=== PATIENT | female | born 1950 | race Caucasian/White ===

== ENCOUNTER → 2016-11-27 | Outpatient (CLI) | payer OTHER ==
[2016-11-27 13:35] LABS: BASO % 0.4 %; BASO ABS # 0.02 K/uL (0-0.2); COMPLETE YES; HEMATOCRIT 41.2 % (37-47); LYMPH % 26.5 %; LYMPH ABS # 1.23 K/uL (1.2-3.4); MEAN CELL VOLUME 90.4 fL (80-100); MEAN CORPUSCULAR HGB CONC 33.3 g/dl (32-36); MEAN PLATELET VOLUME 10.6 fL (7.4-10.4); MONO % 7.1 %; PLATELET COUNT 318 K/uL (130-400); RED BLOOD COUNT 4.56 M/uL (4.2-5.4); WHITE BLOOD COUNT 4.64 K/uL (4.8-10.8)
[2016-11-27 14:23] LABS: ALT/SGPT 21 U/L (12-78); AST/SGOT 16 U/L (15-37); BLOOD UREA NITROGEN 25 mg/dl (7-18); BUN/CREATININE RATIO 28.8 (10-20); CALCIUM 9.2 mg/dl (8.5-10.1); CARBON DIOXIDE 28 mmol/L (21-32); CHLORIDE 106 mmol/L (98-107); CHOLESTEROL 190 mg/dl (0-200); CREATININE 0.85 mg/dl (0.60-1.20); GLUCOSE 95 mg/dl (70-99); POTASSIUM 3.9 mmol/L (3.5-5.1); SODIUM 141 mmol/L (136-145); TRIGLYCERIDES 78 mg/dl (0-150); VERY LOW DENSITY LIPOPROT CALC 16 mg/dl
[2016-11-27 14:24] LABS: ALB/GLOB RATIO 1.2 (0.9-2); ALKALINE PHOSPHATASE 57 U/L (45-117); CHOLESTEROL/HDL RATIO 2.5; HDL CHOLESTEROL 77 mg/dl; LDL CHOLESTEROL CALCULATED 97 mg/dl
== END | disposition home or self-care (01) ==
LOC: C.LABBC 09:32
PROVIDERS: ATTEND Family Medicine
DX: I10 Essential (primary) hypertension (principal); E78.5 Hyperlipidemia, unspecified; Z13.0 Encounter for screening for diseases of the blood and blood-forming organs and certain disorders involving the immune mechanism

== ENCOUNTER → 2017-07-13 | Outpatient (CLI) | payer OTHER ==
--- NOTE | 2017-07-14 07:58 | MAMMOGRAPHY REPORT ---
BILATERAL DIGITAL SCREENING MAMMOGRAM TOMOSYNTHESIS WITH CAD: 07/13/2017 CLINICAL HISTORY: Routine screening. Patient has no complaints. TECHNIQUE: Breast tomosynthesis in addition to standard 2D mammography was performed. Current study was also evaluated with a Computer Aided Detection (CAD) system. COMPARISON: Comparison is made to exams dated: 07/02/2016 mammogram, 06/28/2015 mammogram - [facility], 07/13/2014 mammogram, 07/13/2014 mammogram, 07/25/2013 mammogram, and 08/02/2012 tino mogram. BREAST COMPOSITION: The tissue of both breasts is heterogeneously dense, which may obscure small mas ses. FINDINGS: There are diffuse bilateral microcalcifications and innumerable tiny masses scattered bilat erally. These findings appear generally stable comparing to prior mammograms although some of the ma sses have fluctuated in size, suggesting fluctuating cysts. No suspicious spiculated or irregular ma ss, focal area of architectural distortion or cluster of new, suspicious microcalcifications is seen. IMPRESSION: ACR BI-RADS CATEGORY 1: NEGATIVE There is no mammographic evidence of malignancy. A 1 year screening mammogram is recommended. The pa tient will receive written notification of the results. Approximately 10% of breast cancers are not detected with mammography. A negative mammographic report should not delay biopsy if a clinically suggestive mass is present. Sarah Anton M.D. ay/:07/13/2017 22:00:59 [employer] Finisher: Laurie KOCH)([place]), [facility] letter sent: Normal 1/2 BI-RADS Code: ACR BI-RADS Category 1: Negative
== END | disposition home or self-care (01) ==
LOC: C.MAMM 14:13
PROVIDERS: ATTEND Physician Assistant Medical
DX: Z12.31 Encounter for screening mammogram for malignant neoplasm of breast (principal)

== ENCOUNTER → 2017-11-26 | Outpatient (CLI) | payer OTHER ==
[2017-11-26 11:17] LABS: ALBUMIN 4.2 gm/dl (3.4-5.0); ALT/SGPT 28 U/L (12-78); AST/SGOT 20 U/L (15-37); BLOOD UREA NITROGEN 25 mg/dl (7-18); CALCIUM 9.3 mg/dl (8.5-10.1); CARBON DIOXIDE 30 mmol/L (21-32); CHOLESTEROL 159 mg/dl (0-200); CREATININE 0.77 mg/dl (0.60-1.20); GLUCOSE 94 mg/dl (70-99); POTASSIUM 3.9 mmol/L (3.5-5.1); SODIUM 140 mmol/L (136-145)
[2017-11-26 11:20] LABS: ALKALINE PHOSPHATASE 52 U/L (45-117); LDL CHOLESTEROL CALCULATED 73 mg/dl; TOTAL PROTEIN 7.2 gm/dl (6.4-8.2)
== END | disposition home or self-care (01) ==
LOC: C.LABBC 08:50
PROVIDERS: ATTEND Physician Assistant Medical
DX: Z00.00 Encounter for general adult medical examination without abnormal findings (principal); I10 Essential (primary) hypertension; E78.5 Hyperlipidemia, unspecified

== ENCOUNTER → 2017-12-13 | Outpatient (CLI) | payer OTHER | END | disposition home or self-care (01) | LOC: C.LABBC 13:02 | PROVIDERS: ATTEND Physician Assistant Medical | DX: R30.0 Dysuria (principal) ==

== ENCOUNTER → 2017-12-25 | Outpatient (CLI) | payer OTHER | END | disposition home or self-care (01) | LOC: C.LAB1850 09:29 | PROVIDERS: ATTEND Internal Medicine | DX: R30.0 Dysuria (principal) ==

== ENCOUNTER → 2018-01-05 | Outpatient (CLI) | payer OTHER | END | disposition home or self-care (01) | LOC: C.LABBC 08:29 | PROVIDERS: ATTEND Internal Medicine Geriatric Medicine | DX: R30.0 Dysuria (principal) ==

== ENCOUNTER → 2018-01-21 | Outpatient (CLI) | payer OTHER | END | disposition home or self-care (01) | LOC: C.LABBC 12:14 | PROVIDERS: ATTEND Physician Assistant Medical | DX: R39.9 Unspecified symptoms and signs involving the genitourinary system (principal) ==

== ENCOUNTER → 2018-03-03 | Outpatient (CLI) | payer OTHER | END | disposition home or self-care (01) | LOC: C.PATHSPEC 11:13 | PROVIDERS: ATTEND Urology | DX: R31.29 Other microscopic hematuria (principal); R39.9 Unspecified symptoms and signs involving the genitourinary system ==

== ENCOUNTER 2020-12-07 13:26 | Inpatient (IN) ==
--- NOTE | 2020-12-07 14:07 | Emergency Department Note ---
Impression & Plan Pneumonia due to COVID-19 virus, Hypoxia, Fever ED Provider Note NAME: ROXANNE CASTILLO AGE: 70 SEX: F : 1950 ARRIVES VIA: Walk-In INFORMANT: Patient, ED PROVIDER(S): Darío Watts DO CHIEF COMPLAINT: Shortness of breath HPI: The patient is a 70-year-old female who presented to the emergency department for an evaluation of shortness of breath. The patient has been experiencing shortness of breath fever and cough over the last 5 days. She states symptoms are continuous and worsening especially over the last 24 hours. The patient saw her primary care physician and had an outpatient Covid swab ordered. This was returned today is negative and the patient was advised to come to the emergency department because of ongoing and worsening symptoms. She denies having any chest pain but does complain of chest tightness. She also thinks she may have hurt her rib because now she has reproducible left chest wall pain right over her lower rib cage. She does not have any abdominal pain. She denies having any nausea or vomiting at this time but did have some GI symptoms earlier. She denies having any lower extremity swelling or pain but recently had surgery for a newly diagnosed rectal cancer. She does not have a history of DVT or clot to the lungs. The patient does not normally wear oxygen. The patient did receive the first dose of the COVID-19 vaccination. ROS: See above HPI for pertinent positives & negatives. A total of 10 systems reviewed and were otherwise negative. PAST MEDICAL HISTORY: See Below PAST SURGICAL HISTORY: See Below FAMILY HISTORY: See Below SOCIAL HISTORY: See Below HOME MEDICATIONS: See Below ALLERGIES: See Below VITALS: See Below PHYSICAL EXAMINATION: GENERAL: The patient is awake and alert. She is somewhat anxious appearing. EYES: The conjunctivae are clear. The pupils are round and reactive. EARS, NOSE, MOUTH AND THROAT: The nose is without any evidence of any deformity. NECK: The neck is nontender and supple. RESPIRATORY: Shallow respirations were noted. Diminished breath sounds are noted through the lower right lung field. Rales were noted at the left base. The patient did have some conversational dyspnea. There were no retractions noted. CARDIOVASCULAR: Tachycardic but regular rate was noted auscultation. No definite murmur was noted. GASTROINTESTINAL: The abdomen is soft. Abdomen is nontender. MUSCULOSKELETAL/EXTREMITIES: There is no evidence of gross deformity full range of motion is noted in the hips and shoulders. SKIN: There is no obvious evidence of any rash. There are no petechiae, pallor or cyanosis noted. No calf tenderness was elicited. NEUROLOGIC: Patient is awake alert and oriented x3. MEDICAL DECISION MAKING: The patient is a 70-year-old female who presented to the emergency department for an evaluation of difficulty breathing and cough. The patient had a febrile illness and was negative for Covid earlier in the week. She presents emergency department today because of worsening symptoms. She did receive her first COVID-19 vaccination. The patient was found to have hypoxia in the emergency department. She was treated with Tylenol IV fluids and IV Decadron in the emergency department. I discussed the patient's laboratory and radiographic studies with her. Given the degree of symptoms as well as her hypoxia the patient was felt to be candidate for inpatient management. I discussed this with the patient and she was agreeable. The [facility] hospitalist was notified about the patient pending admission. Triage Nursing notes reviewed. Prior medical records reviewed Vital Signs: reviewed and remarkable for hypoxia, fever, intermittent hypotension. Differential diagnosis: Reactive airway disease, pneumonia, pneumothorax, COPD, CHF, infections, cardiac ischemia, pulmonary embolism, musculoskeletal, gastrointestinal, as well as other pathologies. ER treatment provided: See below Diagnostics interpreted by me: ECG: EKG was obtained in the emergency department. My interpretation is normal sinus rhythm at 96 bpm. Low voltage was noted throughout. Poor R wave progression was noted. No previous tracing was available. Cardiac Monitoring: An order was placed for continuous cardiac monitoring. The monitor shows a rate of 89 bpm with sinus rhythm. Laboratory studies: As stated above and show below. Imaging studies: See below Consultation(s): Dr. Campbell was notified about the patient via [place] text. Past Med/Surg History Medical History Anxiety Dyslipidemia Hypertension Surgical History History of detached retina repair left eye History of hysterectomy History of varicose vein ligation and stripping left leg--1997 Family History Father Dyslipidemia Hypertension Lung cancer Mother Hypertension Breast cancer Myocardial infarction, Onset Age: 89 Sister Breast cancer Thyroid disease Denies family history of Ovarian cancer Prostate cancer Colorectal cancer Stroke Social History Smoking Status: Never smoker Hx Alcohol Use: Yes Hx Substance Use: No Preferred Language: Georgian Visual Impairment: No Limitations Hearing Ability: Normal marital status: single Current Living Situation: Significant Other current occupational status: retired current occupation: x-ray tech Feels Safe at Home: Yes Childhood Exposure to Second-Hand Smoke: Yes caffeine: Yes Dental Care, Regularly: Yes Physical Activity Frequency: 5-6 Times per Week Seatbelt Use: always Sunscreen Use: Yes Allergies Allergies Allergy/AdvReac Type Severity Reaction Status Date / Time acetaminophen [From Percocet] AdvReac Mild Verified 12/07/20 15:29 oxycodone [From Percocet] AdvReac Mild Verified 06/26/20 09:20 Home Meds Home Medications Medication Instructions Recorded Confirmed multivitamin 1 tab PO DAILY 12/07/19 12/07/20 rosuvastatin 5 mg tablet 5 mg PO 3XWK tab 12/11/19 12/07/20 lisinopril-hydrochlorothiazide 1 tab PO DAILY 12/07/20 12/07/20 Results & Data (ED) Vital Signs Vital Signs - 24 hr 12/07/20 13:35 12/07/20 14:10 12/07/20 14:12 Temperature 36.7 C 39.1 C H Temperature Source Temporal Artery Scan Oral Pulse Rate 108 H Pulse Rate [Apical] 95 H Pulse Rate from SpO2 Sensor Respiratory Rate 18 20 Respiratory Effort / Characteristics Non-Labored Spontaneous Non-Labored Spontaneous Non-Labored Spontaneous Respiratory Depth Normal Normal Blood Pressure 147/84 H Blood Pressure [Right Arm] 150/81 H Blood Pressure Mean 105 Blood Pressure Mean [Right Arm] 104 Blood Pressure Position Sitting Pulse Oximetry 91 95 93 Oxygen Delivery Method Room Air Room Air Room Air Sepsis Recent Fever Within 48 Hours Yes Sepsis New/Unexplained Change in Mental Status No Sepsis Action Taken by Nursing No Action Required 12/07/20 14:30 12/07/20 15:00 12/07/20 15:30 Temperature Temperature Source Pulse Rate 88 92 H 82 Pulse Rate [Apical] Pulse Rate from SpO2 Sensor 88 92 H 83 Respiratory Rate 15 15 14 Respiratory Effort / Characteristics Respiratory Depth Blood Pressure 125/72 121/72 114/67 Blood Pressure [Right Arm] Blood Pressure Mean 89 88 82 Blood Pressure Mean [Right Arm] Blood Pressure Position Pulse Oximetry 95 92 92 Oxygen Delivery Method Room Air Room Air Room Air Sepsis Recent Fever Within 48 Hours Sepsis New/Unexplained Change in Mental Status Sepsis Action Taken by Nursing 12/07/20 15:48 12/07/20 16:14 Temperature 38.4 C H Temperature Source Oral Pulse Rate Pulse Rate [Apical] Pulse Rate from SpO2 Sensor Respiratory Rate Respiratory Effort / Characteristics Respiratory Depth Blood Pressure Blood Pressure [Right Arm] Blood Pressure Mean Blood Pressure Mean [Right Arm] Blood Pressure Position Pulse Oximetry 88 L Oxygen Delivery Method Room Air Sepsis Recent Fever Within 48 Hours Sepsis New/Unexplained Change in Mental Status Sepsis Action Taken by Residential Medications Current Medication List: was personally reviewed by me Laboratory Data Attestation: I reviewed the patient's lab results. Result diagrams: 12/07/20 14:25 12/07/20 14:25 Lab Results 12/07/20 12/07/20 12/07/20 Range/Units 14:15 14:15 14:15 WBC (4.8-10.8) K/uL RBC (4.2-5.4) M/uL Hgb (12.0-16.0) g/dL Hct (37-47) % MCV (80-100) fL MCH (25-34) pg MCHC (32-36) g/dL RDW Std Deviation (36.4-46.3) fL RDW Coeff of Bree (11.5-14.5) % Plt Count (130-400) K/uL MPV (7.4-10.4) fL Immature Gran % (Auto) % Neut % (Auto) % Lymph % (Auto) % Johnson % (Auto) % Eos % (Auto) % Baso % (Auto) % Neut # (Auto) (1.4-6.5) K/uL Lymph # (Auto) (1.2-3.4) K/uL Johnson # (Auto) (0.11-0.59) K/uL Eos # (Auto) (0-0.5) K/uL Baso # (Auto) (0-0.2) K/uL Immature Gran # (Auto) (0.00-0.02) K/uL PT (9.0-12.0) Seconds INR (0.9-1.1) APTT (21.0-31.0) Seconds PTT Ratio D-Dimer (0-500) ug/L FEU Sodium (136-145) mmol/L Potassium (3.5-5.1) mmol/L Chloride (98-107) mmol/L Carbon Dioxide (21-32) mmol/L Anion Gap (3-11) BUN (7-18) mg/dl Creatinine (0.6-1.2) mg/dl Est Cr Clr Drug Dosing ml/min Est GFR ( Amer) Est GFR (Non-Af Amer) BUN/Creatinine Ratio (10-20) Glucose (70-99) mg/dl Lactate (0.4-2.0) mmol/L Calcium (8.5-10.1) mg/dl Magnesium (1.8-2.4) mg/dl Total Bilirubin (0.2-1) mg/dl AST (15-37) U/L ALT (12-78) U/L Alkaline Phosphatase (45-117) U/L Troponin I (0-0.045) ng/ml Total Protein (6.4-8.2) gm/dl Albumin (3.4-5.0) gm/dl Globulin (2.5-4.0) gm/dl Albumin/Globulin Ratio (0.9-2) Procalcitonin (0-0.5) ng/ml COVID-19 Eval Order CovFluRsv at [facility] SARS-CoV-2 (PCR) Cancelled Influenza Type A (PCR) Cancelled Influenza Type B (PCR) Cancelled RSV (RT-PCR) Cancelled SARS-CoV-2, RNA, NAAT POSITIVE A* (NEGATIVE) 12/07/20 12/07/20 12/07/20 Range/Units 14:25 14:25 14:25 WBC 8.59 (4.8-10.8) K/uL RBC 4.76 (4.2-5.4) M/uL Hgb 14.2 (12.0-16.0) g/dL Hct 42.2 (37-47) % MCV 88.7 (80-100) fL MCH 29.8 (25-34) pg MCHC 33.6 (32-36) g/dL RDW Std Deviation 41.0 (36.4-46.3) fL RDW Coeff of Bree 12.7 (11.5-14.5) % Plt Count 261 (130-400) K/uL MPV 10.0 (7.4-10.4) fL Immature Gran % (Auto) 0.3 % Neut % (Auto) 88.0 % Lymph % (Auto) 7.5 % Johnson % (Auto) 4.0 % Eos % (Auto) 0.1 % Baso % (Auto) 0.1 % Neut # (Auto) 7.56 H (1.4-6.5) K/uL Lymph # (Auto) 0.64 L (1.2-3.4) K/uL Johnson # (Auto) 0.34 (0.11-0.59) K/uL Eos # (Auto) 0.01 (0-0.5) K/uL Baso # (Auto) 0.01 (0-0.2) K/uL Immature Gran # (Auto) 0.03 H (0.00-0.02) K/uL PT 10.1 (9.0-12.0) Seconds INR 1.0 (0.9-1.1) APTT 26.1 (21.0-31.0) Seconds PTT Ratio 1.0 D-Dimer 440 (0-500) ug/L FEU Sodium 139 (136-145) mmol/L Potassium 4.0 (3.5-5.1) mmol/L Chloride 102 (98-107) mmol/L Carbon Dioxide 28 (21-32) mmol/L Anion Gap 9.0 (3-11) BUN 30 H (7-18) mg/dl Creatinine 1.03 (0.6-1.2) mg/dl Est Cr Clr Drug Dosing 48.7 ml/min Est GFR ( Amer) 63.3 Est GFR (Non-Af Amer) 54.6 BUN/Creatinine Ratio 28.7 H (10-20) Glucose 104 H (70-99) mg/dl Lactate (0.4-2.0) mmol/L Calcium 9.5 (8.5-10.1) mg/dl Magnesium 2.5 H (1.8-2.4) mg/dl Total Bilirubin 0.3 (0.2-1) mg/dl AST 43 H (15-37) U/L ALT 42 (12-78) U/L Alkaline Phosphatase 95 (45-117) U/L Troponin I < 0.015 (0-0.045) ng/ml Total Protein 7.2 (6.4-8.2) gm/dl Albumin 3.5 (3.4-5.0) gm/dl Globulin 3.7 (2.5-4.0) gm/dl Albumin/Globulin Ratio 0.9 (0.9-2) Procalcitonin (0-0.5) ng/ml COVID-19 Eval Order SARS-CoV-2 (PCR) Influenza Type A (PCR) Influenza Type B (PCR) RSV (RT-PCR) SARS-CoV-2, RNA, NAAT (NEGATIVE) 12/07/20 12/07/20 Range/Units 14:25 14:25 WBC (4.8-10.8) K/uL RBC (4.2-5.4) M/uL Hgb (12.0-16.0) g/dL Hct (37-47) % MCV (80-100) fL MCH (25-34) pg MCHC (32-36) g/dL RDW Std Deviation (36.4-46.3) fL RDW Coeff of Bree (11.5-14.5) % Plt Count (130-400) K/uL MPV (7.4-10.4) fL Immature Gran % (Auto) % Neut % (Auto) % Lymph % (Auto) % Johnson % (Auto) % Eos % (Auto) % Baso % (Auto) % Neut # (Auto) (1.4-6.5) K/uL Lymph # (Auto) (1.2-3.4) K/uL Johnson # (Auto) (0.11-0.59) K/uL Eos # (Auto) (0-0.5) K/uL Baso # (Auto) (0-0.2) K/uL Immature Gran # (Auto) (0.00-0.02) K/uL PT (9.0-12.0) Seconds INR (0.9-1.1) APTT (21.0-31.0) Seconds PTT Ratio D-Dimer (0-500) ug/L FEU Sodium (136-145) mmol/L Potassium (3.5-5.1) mmol/L Chloride (98-107) mmol/L Carbon Dioxide (21-32) mmol/L Anion Gap (3-11) BUN (7-18) mg/dl Creatinine (0.6-1.2) mg/dl Est Cr Clr Drug Dosing ml/min Est GFR ( Amer) Est GFR (Non-Af Amer) BUN/Creatinine Ratio (10-20) Glucose (70-99) mg/dl Lactate 1.3 (0.4-2.0) mmol/L Calcium (8.5-10.1) mg/dl Magnesium (1.8-2.4) mg/dl Total Bilirubin (0.2-1) mg/dl AST (15-37) U/L ALT (12-78) U/L Alkaline Phosphatase (45-117) U/L Troponin I (0-0.045) ng/ml Total Protein (6.4-8.2) gm/dl Albumin (3.4-5.0) gm/dl Globulin (2.5-4.0) gm/dl Albumin/Globulin Ratio (0.9-2) Procalcitonin 0.05 (0-0.5) ng/ml COVID-19 Eval Order SARS-CoV-2 (PCR) Influenza Type A (PCR) Influenza Type B (PCR) RSV (RT-PCR) SARS-CoV-2, RNA, NAAT (NEGATIVE) Administered Medications Sodium Chloride (Nss 1000ml) 1,000 mls @ 999 mls/hr IV .[id number] ONE Stop: 12/07/20 17:15 Last Admin: 12/07/20 16:28 Dose: 999 mls/hr Documented by: [id number] Discontinued Medications Acetaminophen (Acetaminophen 500 Mg Tab) 1,000 mg PO NOW STA Stop: 12/07/20 14:13 Last Admin: 12/07/20 14:16 Dose: 1,000 mg Documented by: [id number] Dexamethasone (Dexamethasone Sod Inj 10 Mg/Ml Vial) 10 mg IV NOW ONE Stop: 12/07/20 16:16 Last Admin: 12/07/20 16:29 Dose: 10 mg Documented by: [id number] Imaging Data Radiologist's Impression: Patient: ROXANNE CASTILLO Admit Date: 12/07/20 MR#: [id number] Address1: [address] Acct ID:[id number] Address2: Date: 1950 [facility] Zip: [place] [address] Age: 70 Location: ED Sex: F Room/Bed: Att Phy: Diagnosis: HEADACHE,FEVER,CHILLS,COUGH [place] Phy: Gabbie Aldana MD Service Date: 12/07/20 [facility] Phy: Interpreting Phy: Marin Hernandez MD Admit Phy: Ordering Phy: Darío Watts, cc: ~ XR chest 1V portable CLINICAL HISTORY: Sepsis. COMPARISON STUDY: No previous studies for comparison. FINDINGS: No pneumothorax or pleural effusion is noted. Mild cardiomegaly is noted. There is mild lower lung interstitial thickening, greater on the right. No lobar consolidation is identified. IMPRESSION: Mild lower lung interstitial thickening, greater on the right. The findings could reflect an infectious process or less likely pulmonary vascular congestion. Radiographic follow up is recommended. ACT 112: Negative or not required by law. Electronically signed by: Marin Hernandez M.D. 12/07/2020 3:16 PM Dictated: 12/07/20 1515 Transcribed: 12/07/20 1515 Discharge Plan Visit Data Chief Complaint: Illness Stated Complaint: HEADACHE,FEVER,CHILLS,COUGH ED Provider: Darío Watts Discharge Problem: Pneumonia due to COVID-19 virus, Hypoxia, Fever Patient Disposition: Being Evaluated by Hospitalist Condition: Good Forms Stand Alone Forms: My [facility] Prescriptions Prescriptions: No Action multivitamin [Multiple Vitamins] Tablet 1 tab PO DAILY RF: 0 rosuvastatin 5 mg tablet 5 mg PO 3XWK RF: 0 lisinopril-hydrochlorothiazide 20-12.5 mg tablet 1 tab PO DAILY RF: 0 Referrals Referrals: Gabbie Aldana MD [Primary Care Provider] - Discharge Problem: Fever Qualifiers: Fever type: unspecified Qualified Code(s): R50.9 - Fever, unspecified
[2020-12-07] MEDS ORDERED: ACETAMINOPHEN 500 MG TAB PO STA (14:12)
[2020-12-07 14:43] LABS: Basophils # (auto) 0.01 K/uL (0-0.2); Basophils % (auto) 0.1 %; Eosinophils # (auto) 0.01 K/uL (0-0.5); Eosinophils % (auto) 0.1 %; Hematocrit (blood only) 42.2 % (37-47); Hemoglobin 14.2 g/dL (12.0-16.0); Immature Granulocytes # (auto) 0.03 K/uL (0.00-0.02); Immature Granulocytes % (auto) 0.3 %; Lymphocytes # (auto) 0.64 K/uL (1.2-3.4); Lymphocytes % (auto) 7.5 %; Mean Corpuscular Hemoglobin 29.8 pg (25-34); Mean Corpuscular Hgb Conc 33.6 g/dL (32-36); Mean Corpuscular Volume 88.7 fL (80-100); Monocytes # (auto) 0.34 K/uL (0.11-0.59); Neutrophils # (auto) 7.56 K/uL (1.4-6.5); Platelet Count 261 K/uL (130-400); RDW Coefficient of Variation 12.7 % (11.5-14.5); Red Blood Count 4.76 M/uL (4.2-5.4); White Blood Count 8.59 K/uL (4.8-10.8)
[2020-12-07 15:10] LABS: Alanine Aminotransferase 42 U/L (12-78); Albumin Level 3.5 gm/dl (3.4-5.0); Aspartate Aminotransferase 43 U/L (15-37); BUN Creatinine Ratio 28.7 (10-20); Blood Urea Nitrogen 30 mg/dl (7-18); Calcium 9.5 mg/dl (8.5-10.1); Carbon Dioxide 28 mmol/L (21-32); Chloride 102 mmol/L (98-107); Creatinine Clr Calc Pharmacy 48.7 ml/min; Est GFR (African American) 63.3; Est GFR (Non-African American) 54.6; Glucose 104 mg/dl (70-99); Magnesium 2.5 mg/dl (1.8-2.4); Sodium 139 mmol/L (136-145)
[2020-12-07 15:15] LABS: Albumin Globulin Ratio 0.9 (0.9-2); Alkaline Phosphatase 95 U/L (45-117); Bilirubin,Total 0.3 mg/dl (0.2-1); Globulin 3.7 gm/dl (2.5-4.0); Total Protein 7.2 gm/dl (6.4-8.2); Troponin I < 0.015 ng/ml (0-0.045)
--- NOTE | 2020-12-07 15:18 | XRay Report ---
XR chest 1V portable CLINICAL HISTORY: Sepsis. COMPARISON STUDY: No previous studies for comparison. FINDINGS: No pneumothorax or pleural effusion is noted. Mild cardiomegaly is noted. There is mild low er lung interstitial thickening, greater on the right. No lobar consolidation is identified. IMPRESSION: Mild lower lung interstitial thickening, greater on the right. The findings could reflec t an infectious process or less likely pulmonary vascular congestion. Radiographic follow up is recom mended. ACT 112: Negative or not required by law. Electronically signed by: Marin Hernandez M.D. 12/07/2020 3:16 PM
[2020-12-07 15:26] LABS: D Dimer 440 ug/L FEU (0-500); Partial Thromboplastin Time 26.1 Seconds (21.0-31.0); Prothrombin Time 10.1 Seconds (9.0-12.0)
[2020-12-07] MEDS ORDERED: DEXAMETHASONE SOD INJ 10 MG/ML VIAL IV ONE (16:15)
[2020-12-07] MEDS ORDERED: SODIUM CHLORIDE 0.9% 1000ML 1,000 ML IV ONE (16:15)
--- NOTE | 2020-12-07 17:05 | History & Physical Report ---
Date of Service December 07, 2020 Assessment & Plan (1) Pneumonia due to COVID-19 virus: Dexamethasone 6mg IV daily Isolation precautions Consider Remdesivir pending O2 requirement in AM (2) Hypoxia: Without respiratory distress. Aim O2 sats > 90% (3) Left lower quadrant abdominal pain: CT A/ P with IV contrast to rule out acute diverticulitis as unclear if COVID-19 accounts for all her symptoms. Suspect patients description of prior episodes of this is more just constipation than acute diverticulitis. (4) Hypertension: Hold lisinopril/HCTZ given current BP. (5) Dyslipidemia: Continue rosuvastatin x3/wk outpatient dosing. 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 Follow up outpatient. (7) DVT prophylaxis: Low d-dimer therefore will cover with usual dosing of Lovenox 40mg SQ daily History of Present Illness Chief Complaint: COVID-19 Primary Care Provider: Gabbie Aldana MD Lore Blake is a 70-year-old female who presents to the ER with fevers, headache, abdominal pain, generalized myalgias, poor appetite, weakness and fatigue for the past 5 days. She was seen by her PCP 4 days ago and had a negative COVID/influenza PCR test [facility] 3 days ago. On getting those results back today she decided to come to the ER as she was unsure what was causing her to be so sick. However she notes her symptoms are relatively stable, not getting much worse or better over the last few days. She denies any diarrhea but does note left lower quadrant pain which is not too unusual for her but worse during her current illness. Of note she also gets left lower quadrant pain intermittently which she treats with an enema. 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 She reports her father has a history of a large amount of diverticuli and she has been told she has diverticulosis on prior colonoscopies. She gets these episodes approximately twice a year but has never need antibiotics for such. 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 Oncology planning on further imaging prior to starting possible radiation versus radical surgery. In the ER subsequent COVID-19 PCR positive. She was mildly hypoxic with O2 sats 89% on room air in ER therefore was referred to medicine for admission and ongoing management of COVID-19 pneumonia. Allergies Allergy/AdvReac Type Severity Reaction Status Date / Time acetaminophen [From Percocet] AdvReac Mild Verified 12/07/20 15:29 oxycodone [From Percocet] AdvReac Mild Verified 06/26/20 09:20 Home Medications Medication Instructions Recorded Confirmed Type multivitamin 1 tab PO DAILY 12/07/19 12/07/20 History rosuvastatin 5 mg tablet 5 mg PO 3XWK tab 12/11/19 12/07/20 History lisinopril-hydrochlorothiazide 1 tab PO DAILY 12/07/20 12/07/20 History Past Med/Surg History Medical History Anxiety Eugenie infection of genital region Dyslipidemia History of endometrial cancer Hypertension Injury of meniscus of left knee Primary vulvar squamous cell carcinoma Surgical History History of detached retina repair left eye History of hysterectomy History of varicose vein ligation and stripping left leg--1997 Family History Father Dyslipidemia Hypertension Lung cancer Mother Hypertension Breast cancer Myocardial infarction, Onset Age: 89 Sister Breast cancer Thyroid disease Denies family history of Ovarian cancer Prostate cancer Colorectal cancer Stroke Social History Smoking Status: Never smoker Hx Alcohol Use: Yes Alcohol type: wine Hx Substance Use: No Preferred Language: Portuguese Communication Ability: Effective Visual Impairment: No Limitations Hearing Ability: Normal Tree Driller Required: No Beliefs That Will Affect Care: None marital status: single Current Living Situation: Family Current Living Situation Comment: Lives with partner current occupational status: retired current occupation: x-ray [employer] Other Information That Helps Us Care for You: No Feels Safe at Home: Yes Safety Concerns: Feels Safe At This Time Childhood Exposure to Second-Hand Smoke: Yes caffeine: Yes Dental Care, Regularly: Yes Physical Activity Frequency: 5-6 Times per Week Seatbelt Use: always Sunscreen Use: Yes Assistive Devices: None Review of Systems Review of Systems: All systems reviewed & are unremarkable except as noted in HPI & below Constitutional: + fever, + chills, + body aches, + fatigue and + weakness Physical Exam Constitutional: well nourished and + ill appearing; no acute distress Eyes: + anicteric sclerae; normal pupil size ENMT: Ears: no external ear abnormality Nose: no external nose abnormality Mouth: + dry oral mucous membranes Neck: trachea midline, no thyromegaly Respiratory: normal respiratory effort, lungs clear to auscultation Cardiovascular: Rate/Rhythm: regular rate and regular rhythm Heart Sounds: no murmur Vessels: no JVD Extremities: normal capillary refill; no calf tenderness and no pedal edema Gastrointestinal (Abdomen): Inspection/Auscultation: normal bowel sounds Percussion/Palpation: + abdomen tender (mild LLQ on deep palpation) and abdomen soft; no guarding and abdomen not rigid Musculoskeletal: no cyanosis or clubbing, extremities motor strength 5/5 Skin: no rashes, warm and dry Neurologic: moves all extremities and awake; not confused Psychiatric: A+Ox3, euthymic affect Genitourinary: no CVA tenderness Results & Data Results & Data ([facility]) Vital Signs (Past 12 Hours) Vital Signs Temp Pulse Pulse Resp BP BP Pulse Ox 12/07/20 16:14 88 L 12/07/20 15:48 38.4 C H 12/07/20 15:30 82 14 114/67 92 12/07/20 15:00 92 H 15 121/72 92 12/07/20 14:30 88 15 125/72 95 12/07/20 14:12 93 12/07/20 14:10 39.1 C H 95 H 20 150/81 H 95 12/07/20 13:35 36.7 C 108 H 18 147/84 H 91 Diagnostic Findings XR chest 1V portable IMPRESSION: Mild lower lung interstitial thickening, greater on the right. The findings could reflect an infectious process or less likely pulmonary vascular congestion. Radiographic follow up is recommended. Medications Administered ER Medications given: Dexamethasone 10mg IV Acetaminophen 1g IV ECG Indication: SOB/dyspnea Rate (beats per minute): 96 Rhythm: normal sinus Findings: no acute ischemic change Change: no significant change Code Status & VTE Plan Code Status Full VTE Prophylaxis Plan VTE Prophylaxis will be ordered: Yes PG Care Time/CCT Total # of Minutes Spent Total Time Spent with Patient: Total time spent is greater than 50% in coordination of care (as documented) at patient's floor/unit and/or counseling patient: Coding Level of Care Code 72489 Initial Inpt Care Lvl 3 Diagnoses Pneumonia due to COVID-19 virus U07.1; J12.82 Hypoxia R09.02 Left lower quadrant abdominal pain R10.32 Hypertension I10 Hypertension type: essential hypertension Dyslipidemia E78.5 Primary vulvar squamous cell carcinoma C51.9 DVT prophylaxis Z29.9 (1) Hypertension Hypertension type: essential hypertension Qualified Code(s): I10 - Essential (primary) hypertension
[2020-12-07 18:07] LABS: C Reactive Protein 17.6 mg/dl (0-0.29); Ferritin 383.7 ng/ml (8-388)
[2020-12-07] MEDS ORDERED: ONDANSETRON INJ 2 MG/ML 2 ML VIAL IV PRN (20:49)
[2020-12-07] MEDS ORDERED: POLYETHYLENE (MIRALAX) 17 GM PACK PO PRN (20:49)
[2020-12-07] MEDS ORDERED: OPTIRAY 320 100ml IV ONE (22:45)
[2020-12-08] MEDS: ACETAMINOPHEN 325 MG TAB PO PRN ×3 (02:12→15:28)
[2020-12-08] MEDS ORDERED: SIMETHICONE 80 MG CHEW PO PRN (04:14)
[2020-12-08] MEDS ORDERED: REMDESIVIR 200 MG in SODIUM CHLORIDE 0.9% 210 ML IV ONE (07:30)
[2020-12-08] MEDS: dexAMETHasone 6 MG in SYRINGE 0 ML IV SCH (08:23)
[2020-12-08] MEDS: MULTIVITAMIN TAB PO SCH (08:23)
--- NOTE | 2020-12-08 08:33 | CT Scan Report ---
ABDOMEN AND PELVIS CT WITH IV CONTRAST CT DOSE: 353.60 mGy.cm HISTORY: Acute left lower quadrant abdominal pain LLQ pain, r/o acute diverticultitis TECHNIQUE: Multiaxial CT images of the abdomen and pelvis were performed following the IV administrat ion of 94 cc of Optiray 320, A dose lowering technique was utilized adhering to the principles of AL ANASTACIO. COMPARISON STUDY: Chest radiograph of same day FINDINGS: Patchy bibasilar groundglass densities with subsegmental consolidation. Mild intralobular s eptal thickening. Trace pleural effusions. No pneumatosis or pneumoperitoneum. The imaged inferior ca rdiac chambers are unremarkable. The spleen, pancreas, adrenal glands, gallbladder and liver appear u nremarkable. Patency of the hepatic and portal veins. Kidneys and urinary bladder appear unremarkable. Uterus appears to be surgically absent. No adnexal m ass lesions. No aortic aneurysm or adenopathy. Unremarkable IVC. No bowel obstruction or bowel wall thickening. Mild fecal retention. Colonic diverticulosis. Terminal ileum and appendix are unremarkable. No ascites or mesenteric inflammation. Unremarkable breast pare nchyma and soft tissues. Mid lumbar dextroscoliosis. No acute fracture. IMPRESSION: 1. No acute intra-abdominal or intrapelvic abnormality. 2. No bowel obstruction or bowel wall thickening. Normal appendix. 3. Trace pleural effusions with bibasilar opacities suggestive of pneumonia. 4. Colonic diverticulosis without acute diverticulitis. ACT 112: Negative or not required by law. The above report was generated using voice recognition software. It may contain grammatical, syntax o r spelling errors. Electronically signed by: Tyron Garcia M.D. 12/08/2020 8:32 AM
[2020-12-08] MEDS: SODIUM CHLORIDE 0.9% 10ML FLUSH IV SCH (10:28)
--- NOTE | 2020-12-08 13:34 | Electrocardiogram Report ---
Test Reason : Blood Pressure : / mmHG Vent. Rate : 096 BPM Atrial Rate : 096 BPM P-R Int : 146 ms QRS Dur : 100 ms QT Int : 314 ms P-R-T Axes : 013 -23 027 degrees QTc Int : 396 ms Normal sinus rhythm Low voltage QRS Poor R wave progression, consider anterior WI vs. lead placement vs. LVH Borderline ECG No previous ECGs available Confirmed by Isma Tomlin ([id number]) on 12/08/2020 1:34:31 PM Referred By: REFERRED SELF Confirmed By:Nate Tomlin
--- NOTE | 2020-12-08 13:44 | Hospitalist Progress Note ---
Date of Service December 08, 2020 Assessment & Plan (1) Pneumonia due to COVID-19 virus: Dexamethasone 6mg IV daily, day 2 today Isolation precautions started on Remdesivir 200mg IV this morning since she was hypoxemic on 2L now she is on room air, if she remains on room air for 24 hours and feels better would send home tomorrow (2) Hypoxia: Without respiratory distress. needs 2L NC last night but this morning she is 93% on room air keep for additional 24 hours to make sure she remains stable can likely go home tomorrow (3) Left lower quadrant abdominal pain: CT A/ P with IV contrast: no evidence of acute diverticulitis, just diverticulosis pain is better today, tolerating diet continue to monitor (4) Hypertension: continue to hold lisinopril/HCTZ BP stable off of it (5) Dyslipidemia: Continue rosuvastatin x3/wk outpatient dosing. 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 Follow up outpatient. (7) DVT prophylaxis: Low d-dimer therefore will cover with usual dosing of Lovenox 40mg SQ kemal y Admission and Anticipated Discharge Date Admission Date: December 07, 2020 Anticipated date of discharge: 12/09/20 Subjective patient feeling a little better this morning she was placed on oxygen last night for saturations 88% on room air, stable on 2L all night, this morning she is stable on room air again, 93% gave her a dose of Remdesivir this morning when she was still on oxygen she says she had the vaccine at the beginning of the month, she is frustrated that she contracted COVID, she is always careful she always wears a mask, no known sick contacts no fever or chills, mild cough, she has just had a lot of malaise at home, flu like symptoms she is eating well, no diarrhea discussed staying here today to make sure she stays stable on room air for 24 hours, she agrees with plan Review of Systems Review of Systems: All systems reviewed & are unremarkable except as noted in Subjective Constitutional: + body aches, + fatigue and + weakness; no fever, no chills and no sweats Respiratory: + cough and + dyspnea on exertion; no dyspnea and no sputum production Cardiovascular: no chest pain and no edema Gastrointestinal: no abdominal pain, no nausea, no vomiting, no constipation and no diarrhea/loose stools Physical Exam Constitutional: WD/WN, vitals as above Neck: trachea midline, no thyromegaly Respiratory: normal respiratory effort, lungs clear to auscultation Cardiovascular: RRR, no murmur, no edema Gastrointestinal (Abdomen): normal bowel sounds, soft, nontender, no hepatosplenomegaly Musculoskeletal: no cyanosis or clubbing, extremities motor strength 5/5 Skin: no rashes, warm and dry Neurologic: patellar DTR's 2+ bilat, sensation intact and PERRL, EOMI, accommodation nl, no face palsy, no dysarthria Psychiatric: A+Ox3, euthymic affect Lymphatic: no cervical or axillary lymphadenopathy Results & Data Results & Data ([facility]) Vital Signs (Past 12 Hours) Vital Signs Temp Pulse Resp BP Pulse Ox 12/08/20 07:56 36.6 C 63 16 121/67 93 Laboratory Results Laboratory Results - last 24 hr 12/07/20 12/07/20 12/07/20 14:15 14:15 14:15 WBC RBC Hgb Hct MCV MCH MCHC RDW Std Deviation RDW Coeff of Bree Plt Count MPV Immature Gran % (Auto) Neut % (Auto) Lymph % (Auto) [facility] % (Auto) Eos % (Auto) Baso % (Auto) Neut # (Auto) Lymph # (Auto) [facility] # (Auto) Eos # (Auto) Baso # (Auto) Immature Gran # (Auto) PT INR APTT PTT Ratio D-Dimer Sodium Potassium Chloride Carbon Dioxide Anion Gap BUN Creatinine Est Cr Clr Drug Dosing Est GFR ( Amer) Est GFR (Non-Af Amer) BUN/Creatinine Ratio Glucose Lactate Calcium Magnesium Ferritin Total Bilirubin AST ALT Alkaline Phosphatase Lactate Dehydrogenase Total Creatine Kinase Troponin I C-Reactive Protein Total Protein Albumin Globulin Albumin/Globulin Ratio Procalcitonin COVID-19 Eval Order CovFluRsv at [facility] SARS-CoV-2 (PCR) Cancelled Influenza Type A (PCR) Cancelled Influenza Type B (PCR) Cancelled RSV (RT-PCR) Cancelled SARS-CoV-2, RNA, NAAT POSITIVE A* 12/07/20 12/07/20 12/07/20 14:25 14:25 14:25 WBC 8.59 RBC 4.76 Hgb 14.2 Hct 42.2 MCV 88.7 MCH 29.8 MCHC 33.6 RDW Std Deviation 41.0 RDW Coeff of Bree 12.7 Plt Count 261 MPV 10.0 Immature Gran % (Auto) 0.3 Neut % (Auto) 88.0 Lymph % (Auto) 7.5 [facility] % (Auto) 4.0 Eos % (Auto) 0.1 Baso % (Auto) 0.1 Neut # (Auto) 7.56 H Lymph # (Auto) 0.64 L [facility] # (Auto) 0.34 Eos # (Auto) 0.01 Baso # (Auto) 0.01 Immature Gran # (Auto) 0.03 H PT 10.1 INR 1.0 APTT 26.1 PTT Ratio 1.0 D-Dimer 440 Sodium 139 Potassium 4.0 Chloride 102 Carbon Dioxide 28 Anion Gap 9.0 BUN 30 H Creatinine 1.03 Est Cr Clr Drug Dosing 48.7 Est GFR ( Amer) 63.3 Est GFR (Non-Af Amer) 54.6 BUN/Creatinine Ratio 28.7 H Glucose 104 H Lactate Calcium 9.5 Magnesium 2.5 H Ferritin Total Bilirubin 0.3 AST 43 H ALT 42 Alkaline Phosphatase 95 Lactate Dehydrogenase Total Creatine Kinase Troponin I < 0.015 C-Reactive Protein Total Protein 7.2 Albumin 3.5 Globulin 3.7 Albumin/Globulin Ratio 0.9 Procalcitonin COVID-19 Eval Order SARS-CoV-2 (PCR) Influenza Type A (PCR) Influenza Type B (PCR) RSV (RT-PCR) SARS-CoV-2, RNA, NAAT 12/07/20 12/07/20 12/07/20 14:25 14:25 14:25 WBC RBC Hgb Hct MCV MCH MCHC RDW Std Deviation RDW Coeff of Bree Plt Count MPV Immature Gran % (Auto) Neut % (Auto) Lymph % (Auto) [facility] % (Auto) Eos % (Auto) Baso % (Auto) Neut # (Auto) Lymph # (Auto) [facility] # (Auto) Eos # (Auto) Baso # (Auto) Immature Gran # (Auto) PT INR APTT PTT Ratio D-Dimer Sodium Potassium Chloride Carbon Dioxide Anion Gap BUN Creatinine Est Cr Clr Drug Dosing Est GFR ( Amer) Est GFR (Non-Af Amer) BUN/Creatinine Ratio Glucose Lactate 1.3 Calcium Magnesium Ferritin 383.7 Total Bilirubin AST ALT Alkaline Phosphatase Lactate Dehydrogenase Total Creatine Kinase 93 Troponin I C-Reactive Protein 17.60 H Total Protein Albumin Globulin Albumin/Globulin Ratio Procalcitonin 0.05 COVID-19 Eval Order SARS-CoV-2 (PCR) Influenza Type A (PCR) Influenza Type B (PCR) RSV (RT-PCR) SARS-CoV-2, RNA, NAAT 12/07/20 14:25 WBC RBC Hgb Hct MCV MCH MCHC RDW Std Deviation RDW Coeff of Bree Plt Count MPV Immature Gran % (Auto) Neut % (Auto) Lymph % (Auto) [facility] % (Auto) Eos % (Auto) Baso % (Auto) Neut # (Auto) Lymph # (Auto) [facility] # (Auto) Eos # (Auto) Baso # (Auto) Immature Gran # (Auto) PT INR APTT PTT Ratio D-Dimer Sodium Potassium Chloride Carbon Dioxide Anion Gap BUN Creatinine Est Cr Clr Drug Dosing Est GFR ( Amer) Est GFR (Non-Af Amer) BUN/Creatinine Ratio Glucose Lactate Calcium Magnesium Ferritin Total Bilirubin AST ALT Alkaline Phosphatase Lactate Dehydrogenase 337 H Total Creatine Kinase Troponin I C-Reactive Protein Total Protein Albumin Globulin Albumin/Globulin Ratio Procalcitonin COVID-19 Eval Order SARS-CoV-2 (PCR) Influenza Type A (PCR) Influenza Type B (PCR) RSV (RT-PCR) SARS-CoV-2, RNA, NAAT Medications Administered Current Inpatient Medications Acetaminophen (Acetaminophen 325 Mg Tab) 650 mg PO Q4H PRN PRN Reason: pain/fever Stop: 01/06/21 20:48 Last Admin: 12/08/20 09:27 Dose: 650 mg Documented by: Dexamethasone 6 mg/ Syringe 1.5 mls @ 1 mls/min IV QAM [facility] Stop: 12/17/20 08:59 Last Admin: 12/08/20 08:23 Dose: 1 mls/min Documented by: Remdesivir 100 mg/ Sodium (Chloride) 250 mls @ 250 mls/hr IV Q24H [facility]; Protocol Stop: 12/12/20 12:59 Multivitamins (Multivitamin Tab) 1 tab PO DAILY [facility] Stop: 01/07/21 08:59 Last Admin: 12/08/20 08:23 Dose: 1 tab Documented by: Ondansetron HCl (Ondansetron Inj 2 Mg/Ml 2 Ml Vial) 4 mg IV Q4H PRN PRN Reason: Nausea Stop: 01/06/21 20:48 Polyethylene Glycol (Polyethylene (Miralax) 17 Gm Pack) 17 gm PO DAILY PRN PRN Reason: Constipation Stop: 01/06/21 20:48 Rosuvastatin Calcium (Rosuvastatin Calcium 5 Mg Tab) 5 mg PO MoWeFr CLIF Stop: 01/08/21 08:59 Simethicone (Simethicone 80 Mg Chew) 80 mg PO Q6H PRN PRN Reason: Gas or Constipation Stop: 01/07/21 04:13 Sodium Chloride (Sodium Chloride 0.9% 10ml Flush) 30 ml IV Q24H [facility] Stop: 12/12/20 12:01 Last Admin: 12/08/20 10:28 Dose: 30 ml Documented by: PG Care Time/CCT Total # of Minutes Spent Total Time Spent with Patient: Total time spent is greater than 50% in coordination of care (as documented) at patient's floor/unit and/or counseling patient: Coding Level of Care Code 02472 Subseq Hosp Care Lvl 2 Diagnoses Pneumonia due to COVID-19 virus U07.1; J12.82 Hypoxia R09.02 Left lower quadrant abdominal pain R10.32 Hypertension I10 Hypertension type: essential hypertension Dyslipidemia E78.5 Primary vulvar squamous cell carcinoma C51.9 DVT prophylaxis Z29.9 (1) Hypertension Hypertension type: essential hypertension Qualified Code(s): I10 - Essential (primary) hypertension
[2020-12-08 16:17] LABS: Appearance Urine Clear (Clear); Bacteria Urine Automated Negative (Negative); Bilirubin Urine Negative (Negative); Blood Urine Negative (Negative); Color Urine Yellow; Glucose Urine UA Negative (Negative); Ketones Urine Negative (Negative); Leukocyte Esterase Urine Negative (Negative); Nitrite Urine Negative (Negative); Protein Urine Trace (Negative); RBC Urine Automated 0-4 /hpf (0-4); Specific Gravity Urine > 1.045 (1.000-1.030); Urobilinogen Urine Negative (Negative); pH Urine 5.5 (4.5-7.5)
[2020-12-09] MEDS: MULTIVITAMIN TAB PO SCH (08:15)
[2020-12-09] MEDS: dexAMETHasone 6 MG in SYRINGE 0 ML IV SCH (08:15)
[2020-12-09] MEDS: BENZONATATE 100 MG CAPSULE PO PRN ×3 (08:16→19:33)
[2020-12-09] MEDS ORDERED: ROSUVASTATIN CALCIUM 5 MG TAB PO SCH (09:00)
[2020-12-09] MEDS: REMDESIVIR 100 MG in SODIUM CHLORIDE 0.9% 230 ML IV SCH (11:01)
--- NOTE | 2020-12-09 12:30 | Hospitalist Progress Note ---
Date of Service December 09, 2020 Assessment & Plan (1) Pneumonia due to COVID-19 virus: Improving, but continues with malaise, bad cough. Appetite is improving. Is now on room air for over 24 hours at rest Does not feel quite ready yet to go home -Continue dexamethasone 6mg IV daily, today's day #3 Continue isolation precautions -Continue remdesivir as she was hypoxemic on 2L upon admission-would stop if stable for discharge by tomorrow Continue supportive care Continue antiemetics as needed, Tessalon Perles for cough Continue Tylenol as needed for pain or fever (2) Hypoxia: Without respiratory distress. Was requiring 2L NC on the first night of admission but is now 91% on room air at rest after starting dexamethasone Continued stay as above (3) Left lower quadrant abdominal pain: CT A/ P with IV contrast: no evidence of acute diverticulitis, just diverticulosis This is a longstanding problem for many years as per patient that usually gets resolved with an enema at home pain is better today, tolerating diet continue to monitor (4) Hypertension: continue to hold lisinopril/HCTZ BP stable off of it (5) Dyslipidemia: Continue rosuvastatin x3/wk outpatient dosing. 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 Follow up outpatient. (7) DVT prophylaxis: Low d-dimer therefore will cover with usual dosing of Lovenox 40mg SQ daily Disposition-continued stay, hopeful for discharge to home tomorrow. May need a two-step walk test prior to discharge Admission and Anticipated Discharge Date Admission Date: December 07, 2020 Subjective Patient had chills last night, still feels pretty rundown and a bad cough it is improving. Appetite is improving and she is eating about 50% of her meals now which is a big improvement from last week. She is on about day 9-10 of her symptoms and overall feels much improved than when she came in but does not feel ready to go home yet. She does not feel lightheaded or weak when she stands up and has been ambulating independently to the bathroom. Her IV infiltrated and she lost half her dose of Remdesivir as I had come into the room. Review of Systems Review of Systems: All systems reviewed & are unremarkable except as noted in HPI & below Reports chronic left lower quadrant abdominal pain which comes and goes but currently not present Physical Exam Constitutional: WD/WN, vitals as above Eyes: + anicteric sclerae Neck: trachea midline, no thyromegaly Respiratory: normal respiratory effort and + cough (With deep inspiration) Auscultation: + crackles (Bilateral middle and lower lung hunt); no rhonchi and no wheezes Cardiovascular: RRR, no murmur, no edema Chest (Breasts): Chest: normal inspection of chest Gastrointestinal (Abdomen): normal bowel sounds, soft, nontender, no hepatosplenomegaly Musculoskeletal: Extremities: extremities normal to inspection; no cyanosis and no clubbing Skin: no rashes, warm and dry Neurologic: moves all extremities and awake; no focal motor deficits Psychiatric: A+Ox3, euthymic affect Lymphatic: no lymphedema Results & Data Results & Data ([facility]) Vital Signs (Past 12 Hours) Vital Signs Temp Pulse Resp BP Pulse Ox 12/09/20 08:14 36.9 C 74 14 108/69 91 Laboratory Results 12/08/20 Range/Units 15:15 Urine Color Yellow Urine Appearance Clear (Clear) Urine pH 5.5 (4.5-7.5) Ur Specific [place] > 1.045 H (1.000-1.030) Urine Protein Trace H (Negative) Urine Glucose (UA) Negative (Negative) Urine Ketones Negative (Negative) Urine Blood Negative (Negative) Urine Nitrite Negative (Negative) Urine Bilirubin Negative (Negative) Urine Urobilinogen Negative (Negative) Ur Leukocyte Esterase Negative (Negative) Urine WBC (Auto) 1-5 (0-5) /hpf Urine RBC (Auto) 0-4 (0-4) /hpf U Hyaline Cast (Auto) 1-5 (0-5) /lpf U Epithel Cells (Auto) 10-20 H (0-5) /lpf Urine Bacteria (Auto) Negative (Negative) PG Care Time/CCT Total # of Minutes Spent Total Time Spent with Patient: Total time spent is greater than 50% in coordination of care (as documented) at patient's floor/unit and/or counseling patient: Coding Level of Care Code 13730 Subseq Hosp Care Lvl 2 Diagnoses Pneumonia due to COVID-19 virus U07.1; J12.82 Hypoxia R09.02 Left lower quadrant abdominal pain R10.32 Hypertension I10 Hypertension type: essential hypertension Dyslipidemia E78.5 Primary vulvar squamous cell carcinoma C51.9 DVT prophylaxis Z29.9 (1) Hypertension Hypertension type: essential hypertension Qualified Code(s): I10 - Essential (primary) hypertension
[2020-12-09] MEDS: SODIUM CHLORIDE 0.9% 10ML FLUSH IV SCH (13:15)
[2020-12-09] MEDS ORDERED: REMDESIVIR 100 MG in SODIUM CHLORIDE 0.9% 230 ML IV SCH (15:45)
[2020-12-10 07:26] LABS: Basophils # (auto) 0.01 K/uL (0-0.2); Basophils % (auto) 0.2 %; Hematocrit (blood only) 37.4 % (37-47); Hemoglobin 12.5 g/dL (12.0-16.0); Immature Granulocytes # (auto) 0.06 K/uL (0.00-0.02); Lymphocytes # (auto) 0.89 K/uL (1.2-3.4); Lymphocytes % (auto) 15.1 %; Mean Corpuscular Hemoglobin 29.8 pg (25-34); Mean Corpuscular Hgb Conc 33.4 g/dL (32-36); Mean Corpuscular Volume 89.3 fL (80-100); Mean Platelet Volume 9.9 fL (7.4-10.4); Monocytes # (auto) 0.73 K/uL (0.11-0.59); Monocytes % (auto) 12.4 %; Neutrophils # (auto) 4.19 K/uL (1.4-6.5); Neutrophils % (auto) 71.3 %; Platelet Count 298 K/uL (130-400); RDW Coefficient of Variation 12.8 % (11.5-14.5); Red Blood Count 4.19 M/uL (4.2-5.4); White Blood Count 5.88 K/uL (4.8-10.8)
[2020-12-10 07:56] LABS: BUN Creatinine Ratio 37.1 (10-20); Calcium 8.6 mg/dl (8.5-10.1); Creatinine Clr Calc Pharmacy 68.7 ml/min; Est GFR (Non-African American) 82.9; Magnesium 3.1 mg/dl (1.8-2.4); Potassium 3.9 mmol/L (3.5-5.1)
[2020-12-10] MEDS: BENZONATATE 100 MG CAPSULE PO PRN ×2 (08:01→14:05)
[2020-12-10] MEDS: MULTIVITAMIN TAB PO SCH (08:02)
[2020-12-10] MEDS: dexAMETHasone 6 MG in SYRINGE 0 ML IV SCH (08:02)
[2020-12-10] MEDS: REMDESIVIR 100 MG in SODIUM CHLORIDE 0.9% 230 ML IV SCH (11:39)
--- NOTE | 2020-12-10 11:53 | Discharge Summary ---
Date of Service December 10, 2020 Admission HPI Per Admitting Provider Lore Blake is a 70-year-old female who presents to the ER with fevers, headache, abdominal pain, generalized myalgias, poor appetite, weakness and fatigue for the past 5 days. She was seen by her PCP 4 days ago and had a negative COVID/influenza PCR test [facility] days ago. On getting those results back today she decided to come to the ER as she was unsure what was causing her to be so sick. However she notes her symptoms are relatively stable, not getting much worse or better over the last few days. She denies any diarrhea but does note left lower quadrant pain which is not too unu sual for her but worse during her current illness. Of note she also gets left lower quadrant pain intermittently which she treats with an enema. 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 She reports her father has a history of a large amount of diverticuli and she has been told she has diverticulosis on prior colonoscopies. She gets these episodes approximately twice a year but has never need antibiotics for such. 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 Oncology planning on further imaging prior to starting possible radiation versus radical surgery. In the ER subsequent COVID-19 PCR positive. She was mildly hypoxic with O2 sats 89% on room air in ER therefore was referred to medicine for admission and ongoing management of COVID-19 pneumonia. Principal Diagnosis Covid-19 pneumonia, acute respiratory failure with hypoxia Discharge Exam Constitutional WD/WN, vitals as above Eyes + anicteric sclerae Neck trachea midline, no thyromegaly Respiratory normal respiratory effort and + cough (With deep inspiration) Auscultation: + crackles (Bilateral middle and lower lung hunt); no rhonchi and no wheezes Cardiovascular RRR, no murmur, no edema Chest (Breasts) Chest: normal inspection of chest Gastrointestinal (Abdomen) normal bowel sounds, soft, nontender, no hepatosplenomegaly Rectal Exam: no hemorrhoids Left perianal region with 2 x 1 cm open lesion with some wet exudate overlying, a few suture knots visible and not removed, no active bleeding, no surrounding erythema Musculoskeletal Extremities: extremities normal to inspection; no cyanosis and no clubbing Skin no rashes, warm and dry Neurologic moves all extremities and awake; no focal motor deficits Psychiatric A+Ox3, euthymic affect Lymphatic no lymphedema Discharge Data Allergies Allergy/AdvReac Type Severity Reaction Status Date / Time acetaminophen [From Percocet] AdvReac Mild Verified 12/07/20 15:29 oxycodone [From Percocet] AdvReac Mild Verified 06/26/20 09:20 Consultations 12/07/20 16:16 ED Decision to Admit Stat Ordered Studies 12/07/20 22:22 CT abd pelvis IV con only Urgent Chest x-ray Hospital Course (1) Pneumonia due to COVID-19 virus: Improving, but continues with malaise, mild cough. Appetite is improving. With some sweats at night but no documented fevers. Is now on room air for over 48 hours, no shortness of breath -Continue dexamethasone 6mg daily, needs 6 more days Continue isolation precautions through day 14 which is 12/13 -Received 4 doses of remdesivir as she was hypoxemic on 2L upon admission-okay to discontinue before fifth dose as she is stable for discharge today Continue Tylenol at nighttime for night sweats, Tessalon Perles for cough (2) Hypoxia: Without respiratory distress. Now resolved Was requiring 2L NC on the first night of admission but is now 92% on room air at rest after starting dexamethasone (3) Left lower quadrant abdominal pain: CT A/P with IV contrast: no evidence of acute diverticulitis, just diverticulosis This is a longstanding problem for many years as per patient that usually gets resolved with an enema at home pain is better today, tolerating diet (4) Hypertension: held lisinopril/HCTZ but can restart on discharge BPs have been normal (5) Dyslipidemia: Continue rosuvastatin x3/wk outpatient dosing. 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 Follow up outpatient. With a small amount of bright red bleeding from the wound the night prior to discharge-examination shows healing wound no active bleeding, a few sutures remain that appear to be Vicryl and will dissolve She has follow-up planned in the near future with colorectal surgery Continue sitz bath at home (7) DVT prophylaxis: Low d-dimer therefore will cover with usual dosing of Lovenox 40mg SQ daily Disposition-stable for discharge home Total Time Total Time Spent Total Time Spent (In Minutes): 35 minutes Total Time Includes: Examination of the Patient, Discharge Planning and Medication Reconciliation Discharge Plan Discharge Items Patient Disposition: Home - Self-Care Reason For Visit: HYPOXIA,COVID-19 PNEUMONIA Discharge Diagnosis: Covid-19 pneumonia, hypoxia Condition on Discharge: Good Activity: As commented below Lifting: Gradually increase as tolerated Bathing: No limitations Exercise/Sports: Gradually increase as tolerated Non-emergency contact: Primary Care Provider Call non-emergency contact if: you have any medication questions, your symptoms worsen, you have a fever and your temperature is above 101 Follow-up/Referrals: Gabbie Aldana MD [Primary Care Provider] - (Please follow-up within 1 to 2 weeks after discharge.) Diet: Heart Healthy Addtl Attending Provider Instructions: Please finish out the course of dexamethasone which is a steroid for your Covid- pneumonia. You can continue to use the Tessalon Perles as needed for cough. Continue to drink plenty of fluids and increase your intake of food as your appetite allows. You should take acetaminophen 1000 mg by mouth every night at bedtime to help with your night sweats. Follow-up with your primary care physician within 1 week. Please contact your colorectal surgeon to see if your appointment for this Wednesday needs to be rescheduled due to you having Covid. You can come out of quarantine as of 12/13/2020. Pending Studies at Discharge: No Stand-Alone Forms: [facility] Medications and DC Order Prescriptions: New acetaminophen 500 mg tablet 1,000 mg PO Q8 PRN (Reason: fever or pain) Qty: 30 RF: 0 benzonatate [Tessalon Perles] 100 mg Capsule 100 mg PO TID PRN (Reason: cough) Qty: 20 RF: 0 dexamethasone 6 mg tablet 6 mg PO DAILY Qty: 6 RF: 0 Continued multivitamin [Multiple Vitamins] Tablet 1 tab PO DAILY RF: 0 rosuvastatin 5 mg tablet 5 mg PO 3XWK RF: 0 lisinopril-hydrochlorothiazide 20-12.5 mg tablet 1 tab PO DAILY RF: 0 Discharge Orders: Discharge Order (Routine); Ordered 12/10/20 Ordered By: Le Mccann Admission Data Admit Date/Time: 12/07/20 17:41 Attending Provider: Le Mccann Admit Provider: Mg Campbell Primary Care Provider: Gabbie Aldana Other Providers: Mg Campbell Coding Level of Care Code D/C Day Management >30 mins Diagnoses Pneumonia due to COVID-19 virus U07.1; J12.82 Hypoxia R09.02 Left lower quadrant abdominal pain R10.32 Hypertension I10 Hypertension type: essential hypertension Dyslipidemia E78.5 Primary vulvar squamous cell carcinoma C51.9 DVT prophylaxis Z29.9
[2020-12-10] MEDS: SODIUM CHLORIDE 0.9% 10ML FLUSH IV SCH (12:52)
== END 2020-12-10 15:17 | disposition home or self-care (01) | DRG 177 ==
LOC: ED 13:26 → 2W 17:41 → SUATTDRO 17:41 → 2W 19:25 → 3W 12-08 22:00